=== PATIENT | male | born 1955 | race Caucasian/White ===

== ENCOUNTER → 2022-04-10 | Outpatient (CLI) | payer BC ==
[2022-04-10 14:19] LABS: HEMATOCRIT 38.6 % (42.0-52.0); HEMOGLOBIN 12.3 g/dl (13.5-18.0); MEAN CELL VOLUME 77 fl (80.0-100.0); MEAN CORPUSCULAR HEMOGLOBIN 25 pg (27-31); MEAN CORPUSCULAR HGB CONC 32 g/dl (33.0-37.0); MEAN PLATELET VOLUME 9.7 fl (7.4-10.4); PLATELET COUNT 418 K/mm3 (130-400); REDCELL DISTRIBUTION WIDTH-CV 16.6 % (11.5-14.5)
[2022-04-10 14:50] LABS: ERYTHROCYTE SEDIMENTATION RATE 24 mm/hr (0-30)
== END ==
LOC: COL.LAB 14:00
PROVIDERS: Orthopaedic Surgery
DX: M25.562 Pain in left knee (principal)

== ENCOUNTER 2022-06-20 10:39 | Outpatient (CLI) | payer BC ==
[~2022-06-20] VITALS: Wt 159.6 kg
[2022-06-20] MEDS ORDERED: B-12 250 MCG PO (12:09)
[2022-06-20] MEDS ORDERED: MULTI VITAMINS1 TAB PO (12:10)
[2022-06-20] MEDS ORDERED: VITAMINC1000TA PO (12:10)
[2022-06-20] MEDS ORDERED: PHARMASSURE ZIN50 MG PO (12:11)
[2022-06-20] MEDS ORDERED: VITAMIN D 50,1.25 MG PO (12:12)
[2022-06-20] MEDS ORDERED: LASIX 40MG TABL40 MG PO (12:12)
[2022-06-20] MEDS ORDERED: LIPOFEN150 MG PO (12:13)
[2022-06-20] MEDS ORDERED: K-TAB20 PO (12:13)
[2022-06-20] MEDS ORDERED: SPRYCEL50 MG PO (12:15)
[2022-06-20] MEDS ORDERED: QUERCETIN1 POW PO (12:16)
[2022-06-20] MEDS ORDERED: FLOMAX 0.40.4 MG/CAP PO (12:16)
[2022-06-20] MEDS ORDERED: IRON TABLETS325 MG PO (12:17)
[2022-06-20] MEDS ORDERED: TIAZAC240 MG PO (12:17)
[2022-06-20] MEDS ORDERED: EPA FISH OIL1 SGL PO (12:18)
== END 2022-06-20 13:23 ==
LOC: EUO 10:39
DX: T84.50XA Infection and inflammatory reaction due to unspecified internal joint prosthesis, initial encounter (principal)
CPT/HCPCS: C1751

== ENCOUNTER 2024-08-19 07:34 | Outpatient (CLI) | payer MEDICARE, BC ==
[~2024-08-19] VITALS: Ht 190.5 cm; Wt 146.0 kg
[~2024-08-19 07:34] MED LIST: B-12 250 MCG PO; EPA FISH OIL1 SGL PO; FLOMAX 0.40.4 MG/CAP PO; FOLIC ACID 11 MG/TA1 PO; IRON TABLETS325 MG PO; K-TAB20 PO; LASIX 40MG TABL40 MG PO; LIPOFEN150 MG PO; MULTI VITAMINS1 TAB PO; PHARMASSURE ZIN50 MG PO; QUERCETIN1 POW PO; SPRYCEL50 MG PO; TIAZAC240 MG PO; VITAMIN D 50,1.25 MG PO; VITAMINC1000TA PO
[2024-08-19] MEDS ORDERED: COZAAR 25MG25 MG/TAB PO (08:09)
[2024-08-19] MEDS ORDERED: CEPHALEXIN500 M1 PO (08:09)
[2024-08-19] MEDS ORDERED: ASPIRIN E.C. 8181 MG PO (08:09)
[2024-08-19 08:13] VITALS: BP 150/71; PULSE 77; TEMP 97.8
--- NOTE | 2024-08-19 08:45 | NUR ---
PT HAS RAFAEL WRAP OVER PICC SITE, UP AND DRESSED, PT IS DISCHARGED VIA W/C WITH TO GO TO [facility] FOR NEXT PROCEDURE
== END 2024-08-19 08:45 | disposition home or self-care (01) ==
LOC: EUO 07:34
DX: Z96.651 Presence of right artificial knee joint (principal)
CPT/HCPCS: C1751